=== PATIENT | male | born 1990 | race Caucasian/White ===

== ENCOUNTER 2025-07-05 17:19 | Emergency (ER) | payer MEDICARE | END 2025-07-05 17:53 | disposition left against medical advice (07) | LOC: JP.ED 17:19 | DX: Z53.21 Procedure and treatment not carried out due to patient leaving prior to being seen by health care provider (principal) ==

== ENCOUNTER 2025-07-06 13:07 | Emergency (ER) | payer MEDICARE ==
[2025-07-06 14:43] LABS: APPEARANCE,URINE CLOUDY (CLEAR); GLUCOSE,URINE NEGATIVE (NEGATIVE); OCCULT BLOOD,URINE NEGATIVE (NEGATIVE)
[2025-07-06 14:46] LABS: AMPHETAMINES SCREEN, URINE NEGATIVE (NEGATIVE); METHADONE SCREEN, URINE NEGATIVE (NEGATIVE); METHAMPHETAMINES SCREEN, URINE NEGATIVE (NEGATIVE); OXYCODONE SCREEN,URINE NEGATIVE (NEGATIVE); PROPOXYPHENE SCREEN,URINE NEGATIVE (NEGATIVE); THC SCREEN,URINE 50 NG/ML PRESUMPTIVE POSITIVE (NEGATIVE)
[2025-07-06] MEDS: Lidocaine 2% 30 ML, Alum Hydrox/Mag Hydrox/Simeth 30 ML, diphenhydrAMINE 75 MG MUCMEM PRN (17:40)
== END 2025-07-06 19:00 | disposition home or self-care (01) ==
LOC: JP.ED 13:07
DX: F41.9 Anxiety disorder, unspecified (principal); Z88.8 Allergy status to other drugs, medicaments and biological substances; Z79.899 Other long term (current) drug therapy
CPT/HCPCS: 74019; 80305; 81003; 99284; 99285; A9270

== ENCOUNTER 2025-08-25 09:00 | Emergency (ER) | payer MEDICAID, MEDICARE ==
[2025-08-25] MEDS: Ketorolac 30 MG/ML SDV IVPUSH ONE (09:38)
== END 2025-08-25 12:35 ==
LOC: JP.ED 09:00
DX: M43.16 Spondylolisthesis, lumbar region (principal); I10 Essential (primary) hypertension; Z79.899 Other long term (current) drug therapy; Z88.8 Allergy status to other drugs, medicaments and biological substances; Z87.891 Personal history of nicotine dependence
CPT/HCPCS: 72100; 96374; 99284; A9270; J7030; J1885